=== PATIENT | male | born 1995 | race Caucasian/White ===

== ENCOUNTER 2018-02-01 22:17 | Emergency (ER) | payer BC ==
[~2018-02-01] VITALS: Ht 180.3 cm; Wt 102.1 kg
[2018-02-02] MEDS ORDERED: ULTRAM 50MG TAB50 MG PO (00:24)
[2018-02-02 03:17] VITALS: BP 138/79
== END 2018-02-02 03:18 | disposition home or self-care (01) ==
LOC: M.ERS 22:17
DX: S00.33XA Contusion of nose, initial encounter (principal); W22.8XXA Striking against or struck by other objects, initial encounter; Y93.89 Activity, other specified; Y92.89 Other specified places as the place of occurrence of the external cause; Y99.8 Other external cause status